=== PATIENT | female | born 1955 | race Asian ===

== ENCOUNTER → 2019-09-15 | Day surgery (SDC) | payer BC ==
[~2019-09-15] VITALS: Ht 172.7 cm; Wt 93.9 kg
[~2019-09-15] MED LIST: ATOR40TA52 PO; BUPIVACAINE 0.5% P/F INJ 10 ML VIAL ONE; CHOL200021 PO; CYAN500T15 PO; HEPARIN SODIUM (PORCINE) 5000 UNITS/ML 1ML VIAL ONE; LACTCAP35 PO; LIDOCAINE 1% HCL (LOCAL ANESTH.) INJ 20ML MDV ONE; LOSA25TA38 PO; METF-370 PO; MIDAZOLAM HCL 1MG/1ML-2 ML VIAL ONE; ONDANSETRON HCL 4 MG/2 ML VIAL IV PRN; PROPOFOL 10 MG/ML 20 ML IV ONE; ceFAZolin 1GM/50ML 100 ML IV ONE; ePHEDrine SULFATE 50 MG/ML AMP IV PRN; fentaNYL CITRATE 100 MCG/2 ML VL IV ONE; fentaNYL CITRATE 100 MCG/2 ML VL IV PRN; fentaNYL CITRATE 100 MCG/2 ML VL ONE; hydrALAZINE HCL 20 MG/ML VL IV PRN
[2019-09-15 11:45] VITALS: BP 117/70
== END | disposition home or self-care (01) ==
LOC: SUR 08:54
PROVIDERS: ATTEND Surgery
DX: C85.11 Unspecified B-cell lymphoma, lymph nodes of head, face, and neck (principal); E11.9 Type 2 diabetes mellitus without complications; I10 Essential (primary) hypertension; E78.5 Hyperlipidemia, unspecified; E66.9 Obesity, unspecified; K21.9 Gastro-esophageal reflux disease without esophagitis; Z68.31 Body mass index [BMI] 31.0-31.9, adult; Z79.899 Other long term (current) drug therapy; Z90.710 Acquired absence of both cervix and uterus; Z90.49 Acquired absence of other specified parts of digestive tract; Z79.84 Long term (current) use of oral hypoglycemic drugs
CPT/HCPCS: 38510; 82962; 87070; 87075; 87205; 88305; 88342; J0690; J1644; J2001; J2250; J2704; J3010; J3490